=== PATIENT | female | born 1970 | race Caucasian/White ===

== ENCOUNTER → 2016-12-02 | Outpatient (CLI) | payer OTHER ==
--- NOTE | 2016-12-02 17:28 | PCVCIMAG ---
EXAM: BILATERAL CAROTID DUPLEX INDICATION: Carotid Occlusive Disease. FINDINGS: Doppler Measurements (centimeters per second): RIGHT: Peak CCA-102, Peak ECA-72, Diastolic ICA-33, Peak ICA-93, ICA/CCA Ratio-0.9. LEFT: Peak CCA-102, Peak ECA-89, Diastolic ICA-36, Peak ICA-87, ICA/CCA Ratio-0.9. RIGHT CAROTID: The carotid bulb has no significant plaque. The proximal internal carotid artery shows no significant stenosis. The common carotid artery shows no significant stenosis. The external carotid artery shows no significant stenosis. LEFT CAROTID: The carotid bulb has no significant plaque. The proximal internal carotid artery shows no significant stenosis. The common carotid artery shows no significant stenosis. The external carotid artery shows no significant stenosis. Antegrade flow in both vertebral arteries. IMPRESSION: No significant stenosis of the right internal carotid artery with no significant plaque. No significant stenosis of the left internal carotid artery with no significant plaque. LOC:[place] [id number]
--- NOTE | 2016-12-02 17:32 | PCVCIMAG ---
EXAM: ABDOMINAL ULTRASOUND COMPLETE INDICATION: Abdominal pain FINDINGS: Gallbladder: Few small nonshadowing stones and/or small amount of sludge in the gallbladder. No wall thickening or abnormal pericholecystic fluid. Liver: Normal in size measuring 12.8 cm in length. No focal masses. Bile ducts: No intra or extra hepatic bile duct dilatation. The common bile duct measures 5.2 mm. Pancreas: Unremarkable where seen. Spleen: Normal in size measuring 9.8 cm in greatest dimension. No focal masses. Right kidney: No hydronephrosis. Length measures 9.1 cm. Left kidney: No hydronephrosis. Length measures 9.7 cm. Inferior vena cava: Normal in size where seen. Aorta: Normal in caliber where seen. IMPRESSION: Few small nonshadowing stones/mild sludge within the gallbladder. Gallbladder otherwise unremarkable. LOC:[id number]
--- NOTE | 2016-12-08 18:26 | PCVCIMAG ---
APPROVED REPORT Study performed: 12/02/2016 08:39:20 EXAM: Comprehensive 2D, Doppler, and color-flow Echocardiogram Patient Location: Echo lab Status: routine BSA: 1.45 HR: 78 bpmBP: 94/60 mmHg Rhythm: NSR Other Information Study Quality: Good Indications Palpitations Tachycardia 2D Dimensions LVEF(%): 59.85 (>50%) IVSd: 6.91 (7-11mm) LVDd: 33.38 mm PWd: 6.65 (7-11mm) LVDs: 23.05 (25-40mm) Left Atrium: 23.16 (27-40mm) Aortic Root: 24.65 mm LV Single Plane 4CH: 50.90 % LV Single Plane 2CH: 62.25 %Lo's LVEF: 56.58 % Biplane EF: 56.1 % Volumes Left Atrial Volume (Systole) Single Plane 4CH: 15.53 mLSingle Plane 2CH: 32.93 mL LA ESV Index: 17.00 mL/m2 Aortic Valve AoV Peak Jesse.: 1.08 m/s AO Peak Gr.: 4.65 mmHgLVOT Max P.07 mmHg LVOT Max V: 0.88 m/s Mitral Valve E/A Ratio: 1.6 MV Decel. Time: 218.19 ms MV E Max Jesse.: 0.79 m/s MV A Jesse.: 0.48 m/s IVRT: 86.51 ms Pulmonary Valve PV Peak Jesse.: 0.75 m/sPV Peak Gr.: 2.23 mmHg Pulmonary Vein P Vein S: 0.36 m/sP Vein A: 0.36 m/s P Vein D: 0.43 m/sP Vein A Dur.: 124.6 msec P Vein S/D Ratio: 0.84 Tricuspid Valve TR Peak Jesse.: 2.07 m/s TR Peak Gr.: 17.20 mmHg Left Ventricle The left ventricle is normal size. There is normal LV segmental wall motion. There is normal left ventricular wall thickness. Left ventricular systolic function is normal. The left ventricular ejection fraction is within the normal range. LVEF is 55-60%. The left ventricular diastolic function is normal. Right Ventricle The right ventricle is normal size. The right ventricular systolic function is normal. Atria The left atrium size is normal. The right atrium size is normal. Aortic Valve The aortic valve is normal in structure. No aortic regurgitation is present. There is no aortic valvular stenosis. Mitral Valve The mitral valve is normal in structure. There is no mitral valve regurgitation noted. No evidence of mitral valve stenosis. Tricuspid Valve The tricuspid valve is normal in structure. Trace tricuspid regurgitation with PAP of 24 mmHg. Pulmonic Valve The pulmonary valve is normal in structure. There is no pulmonic valvular regurgitation. Great Vessels The aortic root is normal in size. IVC is normal in size and collapses with >50% inspiration Pericardium There is no pericardial effusion. <Conclusion> Left ventricular systolic function is normal. The left ventricular ejection fraction is within the normal range. LVEF is 55-60%. The right ventricle is normal size. The left atrium size is normal. No aortic regurgitation is present. The mitral valve is normal in structure. There is no mitral valve regurgitation noted.
== END | disposition home or self-care (01) ==
LOC: PCVCIMAG 08:14
PROVIDERS: ATTEND Internal Medicine Cardiovascular Disease
DX: I07.1 Rheumatic tricuspid insufficiency (principal); I77.89 Other specified disorders of arteries and arterioles; K80.20 Calculus of gallbladder without cholecystitis without obstruction; R00.2 Palpitations
CPT/HCPCS: 76700; 93306; 93880